=== PATIENT | female | born 2005 | race Caucasian/White ===

== ENCOUNTER → 2025-05-15 15:20 | Outpatient (REF) | payer OTHER, SELFPAY | LOC: CLAB 15:20 | PROVIDERS: ATTENDING PHYSICIAN Otolaryngology | DX: J35.01 Chronic tonsillitis (principal) | CPT/HCPCS: 87070 ==

== ENCOUNTER 2025-07-19 06:08 | Day surgery (SDC) | payer OTHER, SELFPAY ==
[2025-07-19] VITALS (8 sets, daily range): BP systolic 102–117; BP diastolic 70–79; BMI 19.9
[2025-07-19] MEDS: TYLENOL 1000 MG PO (08:47)
[2025-07-19] MEDS: NORMOSOL-R/PLASMALYTE-A 1000 IV (08:47)
[2025-07-19] MEDS: SUBLIMAZE 50 MCG IV ×2 (11:38→11:51)
== END 2025-07-19 13:34 | disposition home or self-care (01) ==
LOC: SDS 06:08
PROVIDERS: ATTENDING PHYSICIAN Otolaryngology
DX: J03.91 Acute recurrent tonsillitis, unspecified (principal); J35.3 Hypertrophy of tonsils with hypertrophy of adenoids
CPT/HCPCS: 42821; 88304